=== PATIENT | male | born 1990 | race Caucasian/White ===

== ENCOUNTER 2019-12-12 12:46 | Emergency (ER) | payer SELFPAY ==
[2019-12-12 12:55] VITALS: BP 120/65; PULSE 65; RESP 18; TEMP 36.6; O2SAT 98
[2019-12-12 13:55] VITALS: RESP 18
--- NOTE | 2019-12-12 14:35 | ED.GENADUL_ITS ---
Discharge Plan Disposition Patient Disposition: HOME Condition: Stable Discharge Details Chief Complaint: GenMedical Clinical Impression: Upper respiratory infection Primary Care Provider: Elfego Dee ED Provider: Carmen Lake Home Meds and New Rx's Prescriptions: No Action No Known Home Meds RF: 0 Discharge Instructions Instructions: Upper Respiratory Infection (ED), Acute Cough (ED) Additional Instructions: Please return immediately to the emergency department if you develop any new or worsening symptoms, if your condition does not improve as expected, or if you become otherwise concerned. It is extremely important that you call soon as possible to make an appointment to be seen in follow-up for this visit by your primary care doctor. Stand Alone Forms: Work Release Referrals: Elfego Dee [Primary Care Provider] - Discharge Data Discharge Date/Time-TO BE ENTERED AT DEPARTURE: 12/12/19 14:29 Medical Decision Making Juan Manuel Snell is a 29 y/o man without h/o major medical problems presenting to the emergency department with mild cough, fever, body aches, diarrhea, nasal congestion, sore throat since yesterday. On exam Pt is very well and non-toxic appearing, benign cardiopulmonary exam. Concern for influenza vs other viral illness, other. Exam/hx not c/w sepsis, meningitis, pneumonia, significant metabolic/lyte disturbance, ACS, other acute emergent life threatening process. Plan for flu swab. CXR, labs not indicated at this time. Flu swab negative. Pt requesting d/c to home, states that he feels overall quite well. I had a lengthy discussion with Patient regarding return to emergency department precautions, home care, and importance of outpatient follow-up. Pt verbalizes understanding of the plan and is amenable. Patient discharged to home with clear plan for outpatient follow-up. All questions were answered. Disposition decision was made weighing the risks and benefits of hospitalization versus outpatient treatment, the risk for further decompensation, and the patient's wishes. Medical Records Medical records reviewed: Yes I reviewed the patient's medical records. Lab Data Lab results reviewed: Yes I reviewed the patient's lab results. Labs: 12/12/19 13:50 Nasopharynx Influenza Types A,B Antigen - Final HPI General Mode of arrival: ambulatory . Date/Time Provider Initiated Documentation: 12/12/19 12:59 . Limitations to Documentation: no limitations . Information obtained by: patient, RN notes reviewed and old records reviewed . HPI Narrative: Juan Manuel Snell is a 29 y/o man without reported h/o medical problems presenting to the emergency department with nasal congestion, cough, subjective fever, body aches, sore throat, mild diarrhea beginning yesterday morning. Pt reports significant other with similar symptoms for past 5 day, seen here in the ED previously today diagnosed with viral illness. Pt reports that he was previously well, no other recent illness. States that he has been eating and drinking as usual since onset of symptoms, has been able to go about his usual activities. No recent travel. Pt reports mild sore throat, generalized body aches, no other pain. Denies SOB, vomiting, numbness, weakness, rash. Pt requesting work note. Related Data Home Medications Medication Instructions Recorded Confirmed Unknown [No Known Home Meds] 12/12/19 12/12/19 Allergies Allergy/AdvReac Type Severity Reaction Status Date / Time No Known Allergies Allergy Unverified 12/12/19 12:58 General Stated Complaint: GenMedical MICHELLE: 3 Review of Systems Narrative: Constitutional: reports subjective fever yesterday Eyes: denies eye pain ENT: denies ear pain, dental pain, reports mild sore throat Cardiovascular: denies chest pain Respiratory: denies SOB, reports cough GI: denies abdominal pain, vomiting, reports mild diarrhea : denies flank pain MSK: denies back pain, neck pain, reports generalized arthralgias/myalgias Skin: denies rash Neuro: denies headaches, numbness, weakness PFSH Social History Smoking/Tobacco Use Status: Current every day Tobacco Type: cigarettes Alcohol Intake: never Drug use: Never Substance use type: does not use Do you feel safe at home: Yes Do you feel safe in your relationship?: Yes Exam Narrative Exam Narrative: Constitutional: well and [id number], pleasant, conversing normally HENT: head atraumatic/normocephalic/normal inspection, mucous membranes moist, mild erythema of the posterior pharynx without edema/exudates, uvula midline, no intraoral lesion Eyes: conjunctiva normal, sclera normal, pupils 3mm b/l Neck: no stridor, normal ROM, trachea midline Chest: normal inspection Resp: normal work of breathing, LCTAB Cardio: normal rate, normal rhythm, no murmur appreciated Back: normal inspection, no rash Skin: warm, dry, normal color, no rash Neuro: alert, not altered, grossly non-focal, normal tone Ext: no edema, moving all extremities equally Psych: normal mood, normal affect, normal behavior Course Vital Signs Vital signs: Vital Signs Temperature 36.6 C 12/12/19 12:55 Pulse 65 12/12/19 12:55 Respiratory Rate 18 12/12/19 12:55 Blood Pressure 120/65 12/12/19 12:55 Pulse Oximetry 98 12/12/19 12:55 Temperature 36.6 C 12/12/19 12:55 Temperature Source Temporal Artery Scan 12/12/19 12:55 Pulse 65 12/12/19 12:55 Respiratory Rate 18 12/12/19 13:55 Respiratory Effort Non-Labored 12/12/19 13:55 Respiratory Depth Normal 12/12/19 13:55 Respiratory Pattern Normal 12/12/19 13:55 Blood Pressure 120/65 12/12/19 12:55 Blood Pressure Position Sitting 12/12/19 12:55 Pulse Oximetry 98 12/12/19 12:55 Oxygen Delivery Method Room Air 12/12/19 12:55 Oxygen Flow Rate 0 12/12/19 12:55 Pain Level 0 12/12/19 12:55 Lab/Test Results Lab/Test Results: 12/12/19 13:50 Nasopharynx Influenza Types A,B Antigen - Final
== END 2019-12-12 14:29 | disposition home or self-care (01) ==
PROVIDERS: Emergency Provider Student in an Organized Health Care Education/Training Program; PCP Internal Medicine
DX: J06.9 Acute upper respiratory infection, unspecified (principal); R05 Cough; B34.9 Viral infection, unspecified
CPT/HCPCS: 87449; 99282

== ENCOUNTER 2020-07-16 09:32 | Emergency (ER) | payer MEDICAID, SELFPAY ==
--- NOTE | 2020-07-16 09:30 | DI.US_ITS ---
EXAM: US SCROTUM CLINICAL HISTORY: L testicle pain, high riding TECHNIQUE: Ultrasound performed using standard protocol. COMPARISON: No exams were available for comparison FINDINGS: Scrotal ultrasound was performed according to the usual protocol. Testes are normal in echotexture e xcept for minimal bilateral microlithiasis. Normal Doppler flow noted to both testes. No intratesti cular mass or cyst. The epididymi appear normal bilaterally, normal vascular flow. There is a small left varicocele. No right varicocele identified. IMPRESSION: Negative scrotal ultrasound except for small left varicocele DATA REPOSITORY:
[2020-07-16 09:35] VITALS: BP 122/68; PULSE 71; RESP 16; TEMP 36.2; O2SAT 99
--- NOTE | 2020-07-16 09:46 | ED.GENADUL_ITS ---
Discharge Plan Disposition Patient Disposition: HOME Condition: Stable Discharge Details Clinical Impression: Left varicocele Primary Care Provider: Elfego Dee ED Provider: Duane Lynch Home Meds and New Rx's Prescriptions: No Action No Known Home Meds RF: 0 Discharge Instructions Instructions: Varicocele (ED) Additional Instructions: Please use ibuprofen 600 to 800 mg every 8 hours for discomfort. We will ask our care management team to arrange a follow-up for you in urology clinic. Apply cool compress to reduce discomfort. Return if you develop a fever, bloody urine, or any other acute concerns. Stand Alone Forms: Work Release Medical Decision Making 30-year-old male presents from home with the onset while at rest last night of left testicular pain this been fairly constant but does come in waves. No fever or vomiting. States he had previous right testicular torsion that was repaired at [facility] approximately 5 years ago and for which the patient states he believes the left testicle was tacked down. Reports normal urine and ejaculate. On exam his vitals are unremarkable, he has a high riding and tender left testicle. IV access established, screening blood work and urinalysis obtained, patient referred for ultrasound. The patient has a left varicocele, no evidence of mass or torsion. Discussed that we will refer him to urology for follow-up. Primary management will be with NSAIDs. He is stable and appropriate for discharge to home. HPI General Mode of arrival: ambulatory . Date/Time Provider Initiated Documentation: 07/16/20 09:32 . Limitations to Documentation: no limitations . Information obtained by: patient . History of Present Illness 30 year old M presents to the emergency department with the chief complaint of Left testicle pain and high riding, described as moderate, Quality is described as dull and constant, and is localized to the genitals and left. Patient reports no radiation. Patient started experiencing this hour(s) and it has been constant. No relieving factors improve symptom(s), No exacerbating factors reported . Patient notes denies fever/chills. Patient did receive the following treatments prior to arrival, none Related Data Home Medications Medication Instructions Recorded Confirmed Unknown [No Known Home Meds] 12/12/19 07/16/20 Allergies Allergy/AdvReac Type Severity Reaction Status Date / Time No Known Allergies Allergy Unverified 07/16/20 09:38 General Stated Complaint: Abd Prob MICHELLE: 3 Review of Systems Narrative: No other illness, no abdominal pain, fever or vomiting. 6 systems reviewed and otherwise negative. [facility] Medical History (Updated 07/16/20 @ 11:12 by Duane Lynch MD) Right testicular torsion Social History Smoking/Tobacco Use Status: Current every day Tobacco Type: cigarettes Alcohol Intake: current Alcohol Intake frequency: a few times a month Drug use: Never Substance use type: does not use Do you feel safe at home: Yes Do you feel safe in your relationship?: Yes Exam Narrative Exam Narrative: GEN: awake, alert, oriented 3. Pleasant, well groomed, interactive. HEAD: Normocephalic, atraumatic ENT: Mucous membranes moist, oropharynx unremarkable, External ear exam unremarkable EYES: PERRL, EOMI NECK: Full ROM, no ASHLEY, no menigismus CHEST/RESP: Nontender, clear to auscultation bilateral, no wheeze/rhonchi/rales CARDIOVASCULAR: RRR, no murmur, rub rachele. 2+ Rad pulse bilateral ABDOMEN: Soft, nontender, no mass. +Bowel sounds. Patient has descended testicles bilaterally, the left is high riding and tender with mild swelling. EXT: Full ROM, no edema, no rash Neuro: Grossly normal neurologic exam, conversant, interactive. Psych: Speech fluent, thoughts congruent, affect normal Course Vital Signs Vital signs: Vital Signs Temperature 36.2 C L 07/16/20 09:35 Pulse 71 07/16/20 09:35 Respiratory Rate 16 07/16/20 09:35 Blood Pressure 122/68 07/16/20 09:35 Pulse Oximetry 99 07/16/20 09:35 Temperature 36.2 C L 07/16/20 09:35 Temperature Source Skin 07/16/20 09:35 Pulse 71 07/16/20 09:35 Respiratory Rate 16 07/16/20 09:35 Respiratory Effort Non-Labored 07/16/20 09:35 Blood Pressure 122/68 07/16/20 09:35 Blood Pressure Position Sitting 07/16/20 09:35 Pulse Oximetry 99 07/16/20 09:35 Oxygen Delivery Method Room Air 07/16/20 09:35 Oxygen Flow Rate 0 07/16/20 09:35 Pain Level 6 07/16/20 09:35
[2020-07-16] MEDS: Normal Saline Flush 10 ML SYR IVP (09:50)
[2020-07-16] MEDS: Lactated Ringers 1,000 ML 125 ML IV (09:57)
[2020-07-16 10:09] LABS: Abs Immature Grans 0.02 10^3/uL (0.0-0.06); Absolute Basophil Count 0.04 10^3/uL (0.0-0.2); Absolute Eosinophil Count 0.18 10^3/uL (0.0-0.7); Absolute Lymphocyte Count 2.91 10^3/uL (1.2-3.4); Absolute Monocyte Count 0.79 10^3/uL (0.1-0.8); Absolute Neutrophil Count 3.64 10^3/uL (1.2-6.7); Basophils % 0.5; Eosinophils % 2.4; HCT 49.1 % (40.0-50.0); HGB 17.5 g/dL (13.5-17.5); Immature Grans % 0.3; Lymphocytes % 38.4; MCH 32.1 pg (27.0-33.0); MCHC 35.6 % (32.0-36.0); MCV 90.1 fL (80-95); MPV 11.8 fL (8.0-11.0); Monocytes % 10.4; Nucleated RBC 0 %; Platelet Count 212 10^3/uL (130-400); RBC 5.45 10^6/uL (4.36-5.78); RDW 11.9 % (11.8-14.1); WBC 7.58 10^3/uL (4.4-10.8)
[2020-07-16 10:13] LABS: Bilirubin Negative (Negative); Blood Negative (Negative); Clarity Clear (Clear); Glucose Negative (Negative); Ketones Negative (Negative); Leukocyte Esterase Negative (Negative); Nitrite Negative (Negative); Specific Gravity >= 1.030 (1.005-1.025)
[2020-07-16 10:29] LABS: ALT 26 U/L (16-63); AST 16 U/L (15-37); Albumin 3.9 g/dL (3.4-5.0); Alkaline Phosphatase 64 U/L (46-116); Anion Gap 9.4 mmol/L (3-11); BUN 9 mg/dL (7-18); CO2 24.6 mmol/L (21.0-32.0); Calcium 8.7 mg/dL (8.5-10.1); Chloride 106 mmol/L (98-107); Glucose 107 mg/dL (74-106); Potassium 3.8 mmol/L (3.5-5.1); Sodium 140 mmol/L (136-145); Total Protein 6.9 g/dL (6.4-8.2)
[2020-07-16] MEDS: Ketorolac 15 MG/ML VIAL IVP (11:28)
--- NOTE | 2020-07-16 11:28 | NUR.NOTE ---
Nursing Note: Referral to [facility] Urology faxed for follow up. Alicia Kennedy
[2020-07-16 11:31] VITALS: BP 102/49; PULSE 62; RESP 16; TEMP 37; O2SAT 99
== END 2020-07-16 11:38 | disposition home or self-care (01) ==
LOC: ER 11:25
PROVIDERS: Emergency Provider Emergency Medicine; PCP Internal Medicine
DX: I86.1 Scrotal varices (principal)
CPT/HCPCS: 36415; 80053; 96361; 96372; 99284; 76870; 81003; 85025; J1885

== ENCOUNTER 2020-07-26 12:07 | Emergency (ER) | payer MEDICAID, SELFPAY ==
[2020-07-26 12:12] VITALS: BP 120/72; PULSE 87; RESP 14; TEMP 36.4; O2SAT 98
--- NOTE | 2020-07-26 12:15 | DI.US_ITS ---
EXAM: US SCROTUM CLINICAL HISTORY: Bilateral testicle swelling. TECHNIQUE: Scrotal ultrasound performed using grayscale, color-flow and spectral Doppler analysis. COMPARISON: US US SCROTUM from 07/16/2020 FINDINGS: Right testicle: 4.9 x 2.7 x 3.2 cm Echogenicity: Normal. Contour: Smooth. Mass: None seen. Microlithiasis: None. Hydrocele: None. Variocele: None. Hernia: No peristalsing bowel loop identified. Epididymis: Small spermatoceles. The largest measures 6 mm. Left testicle: 4.7 x 2.4 x 3.0 cm Echogenicity: Normal. Contour: Smooth. Mass: None seen. Microlithiasis: None. Hydrocele: None. Variocele: Left varicocele up to 3 mm with Valsalva. Hernia: No peristalsing bowel loop identified. Epididymis: Small spermatoceles. DOPPLER: Color: Symmetric and uniform, no hyperemia. Duplex: Bilateral testicular arterial waveforms visualized. IMPRESSION: No acute abnormality. No evidence of torsion or mass. Small left varicocele. Findings were discussed with the emergency department on the date of the examination. DATA REPOSITORY:
--- NOTE | 2020-07-26 12:19 | ED.GENADUL_ITS ---
Discharge Plan Disposition Patient Disposition: HOME Condition: Stable Discharge Details Clinical Impression: Left varicocele, Spermatocele Primary Care Provider: Elfego Dee ED Provider: Portia Jolley Home Meds and New Rx's Prescriptions: No Action No Known Home Meds RF: 0 Discharge Instructions Instructions: Varicocele (ED), Spermatocele (ED) Stand Alone Forms: Work Release Referrals: Paco Brody MD [ [facility] STAFF PHYSICIAN] - Elfego Dee [Primary Care Provider] - Discharge Data Discharge Date/Time-TO BE ENTERED AT DEPARTURE: 07/26/20 13:18 Medical Decision Making 30-year-old male presents to the ER with bilateral testicle tenderness and swelling. He was seen approximately 10 days ago similar complaint and was diagnosed with a left varicella. He has not followed up with urology as suggested he states that no one is contacted him for an appointment. He does report dysuria at this time and worsening symptoms. Repeat scrotum ultrasound ordered and urinalysis including gonorrhea and chlamydia which is pending at this time. Urinalysis is largely within normal limits no leukocytes no nitrites no blood. EXAM: US SCROTUM CLINICAL HISTORY: Bilateral testicle swelling. TECHNIQUE: Scrotal ultrasound performed using grayscale, color-flow and spectral Doppler analysis. COMPARISON: US US SCROTUM from 07/16/2020 FINDINGS: Right testicle: 4.9 x 2.7 x 3.2 cm Echogenicity: Normal. Contour: Smooth. Mass: None seen. Microlithiasis: None. Hydrocele: None. Variocele: None. Hernia: No peristalsing bowel loop identified. Epididymis: Small spermatoceles. The largest measures 6 mm. Left testicle: 4.7 x 2.4 x 3.0 cm Echogenicity: Normal. Contour: Smooth. Mass: None seen. Microlithiasis: None. Hydrocele: None. Variocele: Left varicocele up to 3 mm with Valsalva. Hernia: No peristalsing bowel loop identified. Epididymis: Small spermatoceles. DOPPLER: Color: Symmetric and uniform, no hyperemia. Duplex: Bilateral testicular arterial waveforms visualized. IMPRESSION: No acute abnormality. No evidence of torsion or mass. Small left varicocele. Findings were discussed with the emergency department on the date of the examination. Ultrasound findings are noted above. Discussed these with patient who verbalizes understanding. Patient was given phone number for urologist and instructed once again to follow-up with urology. Patient verbalizes understanding. Patient remained hemodynamically stable throughout stay. This text was generated using [employer] dictation system, please disregard any oddities of phrase or misspellings. HPI General Mode of arrival: ambulatory . Date/Time Provider Initiated Documentation: 07/26/20 12:15 . Limitations to Documentation: no limitations . Information obtained by: patient . HPI Narrative: 30-year-old male who was seen here approximately 10 days ago with left testicular swelling. He since then states that swelling has extended to left and right testicles and is associated with dysuria. Does have a past surgical history of testicular torsion on the right side which occurred approximately 5 years ago. He has noted a bit of erythema to the bilateral testicles. He also endorses emesis which occurred approximately 4 days ago. He has not seen urology since his visit here. Pain is worse with movement. Related Data Home Medications Medication Instructions Recorded Confirmed Unknown [No Known Home Meds] 12/12/19 07/26/20 Allergies Allergy/AdvReac Type Severity Reaction Status Date / Time No Known Allergies Allergy Unverified 07/26/20 12:14 General Stated Complaint: Vascular MICHELLE: 3 Review of Systems Narrative: Constitutional: Negative for weight loss, alert and oriented, well groomed, normal body habitus, appears comfortable. HEENT: Denies trauma, headaches, blurry vision, nasal discharge, sore throat, trouble swallowing. Chest: Denies chest pain, palpitations, irregular rhythm, hypertension. Respiratory: Denies Shortness of breath, cough, hemoptysis. GI: Denies abdominal pain, nausea, vomiting, diarrhea, constipation. : Denies dysuria, hematuria, flank pain, rectal bleeding. Neuro: Denies dizziness, blurry vision, weakness, syncope, headache or facial numbness. Hematologic: Denies easy bruising, intolerance to heat or cold, hair loss. [facility] Medical History Right testicular torsion Social History Smoking/Tobacco Use Status: Current every day Tobacco Type: cigarettes Alcohol Intake: current Alcohol Intake frequency: a few times a month Drug use: Never Substance use type: does not use Do you feel safe at home: Yes Do you feel safe in your relationship?: Yes Exam Narrative Exam Narrative: Constitutional: Alert and oriented x3. Appears stated age. Normal body habitus. Head: Normocephalic, no trauma. Eyes: Pupils PERRLA, Red reflex noted, EOM's intact. Eyelids symmetrical without lesions, discharge, or swelling. ENT: Bilateral TM's WNL, External ear normal to inspection, no mastoid TTP, swelling, or erythema, Nasal turbinates WNL, no nasal discharge. Normal dentition, Posterior pharynx WNL, no exudate. Chest: RRR, Normal S1, S2, distal pulses intact. Resp: Lungs clear to auscultation bilaterally, no wheezes, rales, or rhonchi. GI: Abdomen is soft nontender nondistended with palpation. :Crematic reflex present on the right. Bilateral testicles are tender with palpation, erythema noted to the scrotal sac, no penile lesions or discharge noted. Musculoskeletal: Normal gait, 5/5 strength to all four extremities. Skin: No suspicious rashes or lesions. Capillary refill less than 2 sec. Neurologic: Cranial nerves II-XII intact. Alert and oriented x 3. DTR's intact. Hematologic/Lymphatic: No ecchymosis, no lymphadenopathy. Course Vital Signs Vital signs: Vital Signs Temperature 36.4 C L 07/26/20 12:12 Pulse 87 07/26/20 12:12 Respiratory Rate 14 07/26/20 12:12 Blood Pressure 120/72 07/26/20 12:12 Pulse Oximetry 98 07/26/20 12:12 Temperature 36.4 C L 07/26/20 12:12 Temperature Source Temporal Artery Scan 07/26/20 12:12 Pulse 87 07/26/20 12:12 Respiratory Rate 14 07/26/20 12:12 Respiratory Effort Non-Labored 07/26/20 12:14 Blood Pressure 120/72 07/26/20 12:12 Blood Pressure Position Sitting 07/26/20 12:12 Pulse Oximetry 98 07/26/20 12:12 Oxygen Delivery Method Room Air 07/26/20 12:12 Oxygen Flow Rate 0 07/26/20 12:12 Pain Level 10 07/26/20 12:12
[2020-07-26 12:44] LABS: Bilirubin Negative (Negative); Blood Negative (Negative); Clarity Clear (Clear); Glucose Negative (Negative); Ketones Negative (Negative); Leukocyte Esterase Negative (Negative); Nitrite Negative (Negative); Specific Gravity >= 1.030 (1.005-1.025); Urobilinogen 0.2 EU/dL (Up TO 0.2); pH 5.5 (5-8)
[2020-07-26] MEDS: traMADol 50 MG TAB PO (13:10)
--- NOTE | 2020-07-26 13:15 | NUR.NOTE ---
Nursing Note: Referral to [facility] Urology for follow up faxed to [facility]. Alicia Kennedy
--- NOTE | 2020-07-26 13:38 | NUR.NOTE ---
Nursing Note: Patient being seen for bilateral testicle pain & swelling. Began as left sided pain. Provider examined per patient request.
[2020-07-27 13:52] LABS: Chlamydia Result Negative (Negative); GC Result Negative (Negative)
== END 2020-07-26 13:18 | disposition home or self-care (01) ==
PROVIDERS: Emergency Provider Registered Nurse Emergency; PCP Internal Medicine
DX: I86.1 Scrotal varices (principal); N43.40 Spermatocele of epididymis, unspecified; R30.0 Dysuria
CPT/HCPCS: 87491; 87591; 99284; 76870; 81003

== ENCOUNTER 2020-12-04 21:18 | Emergency (ER) | payer MEDICAID, SELFPAY ==
[2020-12-04 21:25] VITALS: BP 129/75; PULSE 71; RESP 16; TEMP 36.4; O2SAT 100
--- NOTE | 2020-12-04 21:30 | ED.GENADUL_ITS ---
Discharge Plan Disposition Patient Disposition: HOME Condition: Good Discharge Details Clinical Impression: Rash, Cellulitis, Impetigo Primary Care Provider: Elfego Dee ED Provider: Sathya Baca Home Meds and New Rx's Prescriptions: New cephalexin [Keflex] 500 mg capsule 500 mg PO QID 7 Days Qty: 28 RF: 0 mupirocin 2 % ointment 1 applic topical BID Qty: 15 RF: 0 Discharge Instructions Instructions: Cephalexin (By mouth), Impetigo (ED), Cellulitis (ED) Additional Instructions: At this time clinically your symptoms appear indicative of a mild bacterial infection that has occurred on your rash. This rash may have started from dry skin during the current weather that we are having. Please apply a small amount of the mupirocin ointment to the rash areas. Please take the Keflex as directed. If you notice spreading of the redness, fever or chills, please return immediately for reassessment. If you notice any worsening of your symptoms, or any new symptoms such as vomiting, diarrhea, fever, chills, shortness of breath, chest pain, numbness, weakness, or fainting , please return immediately to the emergency department for reevaluation. Please follow up with your primary care provider as soon as possible for reassessment and reevaluation. As always, it was a pleasure participating in your medical care today. Additionally as we discussed, we will help you establish a new family doctor in this area as you have now moved down here. Referrals: Elfego Dee [Primary Care Provider] - Medical Decision Making 30-year-old male presents today for rash. Patient states that over the last 24 to 48 hours he has developed a mild rash on his left forearm and his right flank. He describes the rash as notably itchy on the left forearm and burning on the right flank. He has never had a rash before, no new medications, no localized exposure to heat or cold. No new detergents, no family members with similar symptoms, no new pets. He does have a dog but the dog has not been licking these areas. No history of autoimmune conditions, or eczema. No other complaints at this time. He denies any oral lesions. Physical exam demonstrates 2 separate and visually distinct lesions, the lesion on the left forearm appears more dry, crusty, with slight tint of yellow crusting, concerning for impetigo with minimal cellulitis. There is also a small satellite lesion to this. No other lesions over the extensor or flexor surfaces otherwise. Lesion on the right flank is also small but demonstrates more clear evidence of localized cellulitis. No induration or firmness though. Symptoms at this time appear consistent with both mild cellulitis and mild impetigo. Uncertain as to what the exact initial inciting etiology was. No current clinical evidence of staph scalded skin syndrome, erythema multiforme, erythema migrans, toxic epidermal necrolysis, Grace-Clarence syndrome, Kawasaki-like rash, meningococcemia, pemphigus vulgaris, or necrotizing fasciitis. At this time we will give Keflex and topical mupirocin. We outlined both the rash areas, discussed red flags which to return. I have extensively reviewed the treatment plan and discharge instructions with the patient. I have addressed all patient concerns at this time. The patient was made aware of what symptoms to monitor for that would warrant a return to the emergency department. Discussed the plan with the patient, they demonstrate verbal understanding and agreement with our assessment and plan at this time. The documentation in this chart was dictated using [employer] dictation software. Please excuse any dictation errors. Additionally the patient has recently moved down to [facility], he has asked that we help establish PCP care down here. Will help facilitate this with care management referral. HPI General Date/Time Provider Initiated Documentation: 12/04/20 21:20 . HPI Narrative: 30-year-old male presents today for rash. Patient states that over the last 24 to 48 hours he has developed a mild rash on his left forearm and his right flank. He describes the rash as notably itchy on the left forearm and burning on the right flank. He has never had a rash before, no new medications, no localized exposure to heat or cold. No new detergents, no family members with similar symptoms, no new pets. He does have a dog but the dog has not been licking these areas. No history of autoimmune conditions, or eczema. No other complaints at this time. He denies any oral lesions. Related Data Home Medications Medication Instructions Recorded Confirmed cephalexin [Keflex] 500 mg PO QID 7 Days #28 cap 12/04/20 mupirocin 1 applic TOPICAL BID #15 g 12/04/20 Previous Rx's Medication Instructions Recorded cephalexin [Keflex] 500 mg PO QID 7 Days #28 cap 12/04/20 mupirocin 1 applic TOPICAL BID #15 g 12/04/20 Allergies Allergy/AdvReac Type Severity Reaction Status Date / Time No Known Allergies Allergy Unverified 07/26/20 12:14 General Stated Complaint: RashLesion MICHELLE: 5 Review of Systems All systems reviewed & are unremarkable except as noted in HPI and below PFSH Social History Smoking/Tobacco Use Status: Current every day Tobacco Type: cigarettes Smoking risk assessment performed?: Yes Alcohol Intake: current Alcohol Intake frequency: a few times a month Drug use: Never Substance use type: does not use Current gender identity: male Do you feel safe at home: Yes Do you feel safe in your relationship?: Yes Exam Narrative Exam Narrative: 1.Const: Well-nourished, Well-developed, appearing stated age 2.Eyes: PERRL, no conjunctival injection, and symmetrical lids. 3.ENT: Atraumatic external nose and ears. Moist MM. Neck: Symmetric, trachea midline, No thyromegaly. 4.CVS: +S1/S2, No murmurs or gallops. Peripheral pulses 2+ and equal in all extremities. Brisk capillary refill in all extremities. 5.RESP: Unlabored respiratory effort. Clear to auscultation bilaterally. No wheezes rales or rhonchi 6.GI: Soft, Nontender/Nondistended, No hepatosplenomegaly. No guarding or rebound. 7.MSK: Normocephalic/Atraumatic, Extremities w/o deformity or ttp No cyanosis or clubbing, Normal movement of all extremities 8.Skin: Warm, Dry. Patient's left forearm demonstrate a longitudinal rash going proximal to distal being about 10 cm long and 1-1/2 to 2 cm wide. The skin appears slightly dry, minimally erythematous, and notably crusty, but the patient denies having itch this area. Slight/questionable yellow crusting. The patient's right flank demonstrates an area of focal skin irritation with a circular shape, diameter of roughly 2-1/2 to 3 cm, with mild circumferential erythema extending an additional 2-1/2 to 3 cm of the radius, around that region. Both of these areas there is no evidence of fluctuance, negative Nikolsky sign. No large vesicles or bulla. No palpable purpura. No oral lesions. No mucosal lesions. No evidence of severe cellulitis. No evidence of vaccine preventable rash. 9.Neuro: supervisory lifeguard II-XII grossly intact. Sensation grossly intact, no focal neurologic deficits. 10.Psych: (AAO) x3. Appropriate mood and affect Course Vital Signs Vital signs: Vital Signs Temperature 36.4 C L 12/04/20 21:25 Pulse 71 12/04/20 21:25 Respiratory Rate 16 12/04/20 21:25 Blood Pressure 129/75 12/04/20 21:25 Pulse Oximetry 100 12/04/20 21:25 Temperature 36.4 C L 12/04/20 21:25 Temperature Source Skin 12/04/20 21:25 Pulse 71 12/04/20 21:25 Respiratory Rate 16 12/04/20 21:25 Blood Pressure 129/75 12/04/20 21:25 Blood Pressure Position Sitting 12/04/20 21:25 Pulse Oximetry 100 12/04/20 21:25 Oxygen Delivery Method Room Air 12/04/20 21:25 Oxygen Flow Rate 0 12/04/20 21:25 Pain Level 7 12/04/20 21:25
[2020-12-04] MEDS: Cephalexin 500 MG CAP, 4 CAPS/BTL PO (21:36)
--- NOTE | 2020-12-04 21:40 | NUR.NOTE ---
sent referral to CM for establishment of new local pcp Rj Bae Note:
--- NOTE | 2020-12-12 16:25 | PDOC.ERCMPRO ---
- If Service Date Differs Date of service: 12/12/20 Time of Service: 16:25 Care Management Progress Note Juan Manuel is seen in the ED on 12/04/2020 for a rash/cellulitis. At the request of ED provider, MENDOZA coordinates a referral to Sarah Gramajo of [facility], on-call provider, to assist Juan Manuel in obtaining a follow up appointment and in establishing care with a local PCP. Juan Manuel has [place] Medicaid for insurance.
== END 2020-12-04 21:40 | disposition home or self-care (01) ==
PROVIDERS: Emergency Provider Student in an Organized Health Care Education/Training Program; PCP Internal Medicine
DX: L03.114 Cellulitis of left upper limb (principal); L03.312 Cellulitis of back [any part except buttock and flank]; L01.00 Impetigo, unspecified
CPT/HCPCS: 99283

== ENCOUNTER 2021-04-15 07:33 | Emergency (ER) | payer OTHER, SELFPAY ==
[2021-04-15 07:37] VITALS: BP 134/73; PULSE 79; RESP 18; TEMP 36; O2SAT 95
--- NOTE | 2021-04-15 08:00 | DI.RAD_ITS ---
Exam(s) XR HAND LT COMPLETE EXAM: XR HAND LT COMPLETE CLINICAL HISTORY: left laceration from trauma,mid 5th metacarpal. TECHNIQUE: 2D digital imaging was performed. COMPARISON: No exams were available for comparison FINDINGS: There is soft tissue avulsion off the medial aspect of the hand. There is a laceration which extends deep towards the bone. There is no evidence of fracture of the subjacent 5th metacarpal nor elsewhe re in the hand.. On the lateral view are densities dorsal to the distal wrist which may represent fo reign bodies. This is slightly proximal to the wound site. IMPRESSION: Deep soft tissue laceration on the medial aspect of the hand. No subjacent fracture but possible for eign body as described above, best seen on the lateral view. DATA REPOSITORY: RADIATION DOSE DELIVERED:
--- NOTE | 2021-04-15 09:09 | ED.GENADUL_ITS ---
Discharge Plan Disposition Patient Disposition: HOME Condition: Good Discharge Details Clinical Impression: Complicated laceration of hand Primary Care Provider: Elfego Dee ED Provider: Millie Davis Home Meds and New Rx's Prescriptions: New hydrocodone-acetaminophen 5-325 mg tablet 1 tab PO Q8H PRNQty: 3 RF: 0 cephalexin 500 mg tablet 500 mg PO Q6H Qty: 28 RF: 0 Discharge Instructions Instructions: Laceration (ED) Additional Instructions: Change dressings every 2 days If you do not receive a phone call from orthopedics office, please give them a call to schedule appointment tomorrow You do not need to be evaluated tomorrow but I would call to set up an appointment Take ibuprofen and Tylenol for pain, if your pain is not controlled with these [id number] medications, you may take a tablet of hydrocodone as needed, this medication is addictive and can make you constipated You should also not drive for 8 hours after taking this medication, do not take more than 1 g of Tylenol every 6 hours Please return with spreading redness, fever, worsening pain Take antibiotic as prescribed Stand Alone Forms: Work Release Discharge Data Discharge Date/Time-TO BE ENTERED AT DEPARTURE: 04/15/21 10:05 Medical Decision Making Foreign bodies noted, I did attempt to locate evidence of foreign body, I irrigated copiously but did not see obvious foreign body noted There is a deeper puncture wound but I do not see obvious tendon, there is obv ious muscle injury through the fascia, do not visualize the bone, placed on Keflex Discussed with Dr. Small, orthopedics who will see patient in follow-up, large bulky dressing applied Patient aware that he will need orthopedic follow-up this week Low threshold to return with new or worsening complaints Tolerated suture placement without incident No fracture noted on x-ray imaging per radiologist interpretation of my review Tetanus up-to-date Differential Diagnosis Differential Diagnosis: Laceration, abrasion, contusion, fracture Medical Records Medical records reviewed: Yes I reviewed the patient's medical records. HPI General Date/Time Provider Initiated Documentation: 04/15/21 08:00 . Limitations to Documentation: no limitations . Information obtained by: patient . HPI Narrative: This is a 30-year-old male presents with laceration to left hand. He reportedly had a piece of wood kicked back when he was cutting it with a saw. He denies any additional injuries. He states that his tetanus is up-to-date. He is having difficulty abducting his left chest digit reportedly on the pain. He denies any sensation change. He does report he is able to flex and extend his affected finger. He has not anticoagulated reportedly. Related Data Home Medications Medication Instructions Recorded Confirmed cephalexin 500 mg PO Q6H #28 tab 04/15/21 hydrocodone-acetaminophen 1 tab PO Q8H PRN #3 tab 04/15/21 Previous Rx's Medication Instructions Recorded cephalexin 500 mg PO Q6H #28 tab 04/15/21 hydrocodone-acetaminophen 1 tab PO Q8H PRN #3 tab 04/15/21 Allergies Allergy/AdvReac Type Severity Reaction Status Date / Time No Known Allergies Allergy Unverified 04/15/21 07:40 General Stated Complaint: Laceration MICHELLE: 4 Review of Systems Narrative: Review of systems negative x3 aside from where indicated in HPI PFSH Social History Smoking/Tobacco Use Status: Current every day Tobacco Type: cigarettes Smoking risk assessment performed?: Yes Alcohol Intake: current Alcohol Intake frequency: holidays/special occasions only Drug use: Never Substance use type: does not use Current gender identity: male Do you feel safe at home: Yes Do you feel safe in your relationship?: Yes Exam Extrem Hand/finger images: 1. 2. Laceration noted, limited abduction, flexion extension intact, brisk capillary refill, now obvious tendon injury, muscle injury noted Sensation intact distally Course Vital Signs Vital signs: Vital Signs Temperature 36 C L 04/15/21 07:37 Pulse 79 04/15/21 07:37 Respiratory Rate 18 04/15/21 07:37 Blood Pressure 134/73 04/15/21 07:37 Pulse Oximetry 95 04/15/21 07:37 Temperature 36 C L 04/15/21 07:37 Temperature Source Temporal Artery Scan 04/15/21 07:37 Pulse 79 04/15/21 07:37 Respiratory Rate 18 04/15/21 07:37 Respiratory Effort Non-Labored 04/15/21 07:41 Blood Pressure 134/73 04/15/21 07:37 Blood Pressure Position Sitting 04/15/21 07:37 Pulse Oximetry 95 04/15/21 07:37 Oxygen Delivery Method Room Air 04/15/21 07:37 Oxygen Flow Rate 0 04/15/21 07:37 Pain Level 7 04/15/21 07:41 Procedures Laceration Laceration 1: Site: hand Side (If applicable): left Size (cm): 3 Description: irregular Depth: involves muscle layer and involves tendon Local Anesthetic: Lidocaine 1% Pre-repair: wound explored, irrigated extensively and wound margins revised Skin layer closed with: nylon Size (cm): 4-0 Number of sutures: 5 Technique: simple, interrupted and other
== END 2021-04-15 10:05 | disposition home or self-care (01) ==
PROVIDERS: Emergency Provider Physician Assistant; PCP Internal Medicine
DX: S61.422A Laceration with foreign body of left hand, initial encounter (principal); S66.822A Laceration of other specified muscles, fascia and tendons at wrist and hand level, left hand, initial encounter; W31.2XXA Contact with powered woodworking and forming machines, initial encounter
CPT/HCPCS: 12002; 99282; 73130; 99281

== ENCOUNTER 2021-11-18 22:19 | Emergency (ER) | payer MEDICAID, SELFPAY ==
[2021-11-18] VITALS (16 sets, daily range): BP systolic 59–152; BP diastolic 33–71; PULSE 88–152; RESP 18; TEMP 38.1; O2SAT 96–99
--- NOTE | 2021-11-18 22:50 | ED.GENADUL_ITS ---
Discharge Plan Disposition Patient Disposition: HOME Condition: Stable Discharge Details Clinical Impression: COVID Primary Care Provider: Unknown,Unknown ED Provider: Justin Butterfield Home Meds and New Rx's Prescriptions: Discontinued cephalexin 500 mg tablet 500 mg PO Q6H Qty: 28 RF: 0 Discharge Instructions Additional Instructions: If you feel significantly more short of breath or more ill return to the emergency department for evaluation Stand Alone Forms: COVID-19 Antibody Therapy, POSITIVE COVID-19/TO BE TESTED Medical Decision Making <DARIN Adams - Last Filed: 11/19/21 01:10> Patient is a pleasant 31-year-old gentleman presents today with chief complaint fever, headache, general malaise, body aches. He states that symptoms began this morning. He reports a T-max of 105 ?F at home today. States that he used ibuprofen approximately 2 hours prior to arrival. States that he had a slow progressive onset of headache. Reports that he has had a headache directly but this does seem to be slightly increased from his baseline. He denies any rash. No visual changes. He does state that he has been feeling slightly lightheaded. No focal deficits. 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 He denies any shortness of breath, chest pain, cough, rhinorrhea or throat. He has not had any GI upset including nausea, vomiting, diarrhea. No change in his appetite today. Zeya denies any dysuria, increased frequency or urgency. On exam, patient appears nontoxic. Slightly tachycardic with heart rate of 106. Febrile at time of 38 1. We will augment his ibuprofen with oral acetaminophen. He has a normal neurological exam. He does have some discomfort over his bilateral temples. He denies any claudication symptoms given his age and that he has no associated claudication, I do not see evidence suggest temporal arteritis. He has no meningismus. No rash. Lungs are clear, normal cardiac exam. Abdomen is benign. He does seem generally uncomfortable with palpation consistent with his complaint of body aches. Patient did not vaccine against COVID-19. He has not received his flu vaccine. Patient is an active smoker and reports smoking 1 pack/day. He denies any known respiratory issues. Unclear exactly what is causing his symptoms. Primarily concern for COVID or flu at this time given the onset of the symptoms the patient is not vaccinated. He does state that his son was exposed to COVID at daycare but they had test that were negative on Thursday. His exam is not consistent with meningitis, patient does not appear acutely ill. He is not endorsing any respiratory complaints this time his oxygen saturation is good. However, with his heavy smoking history, I am concerned that if it is fluid COVID he is at higher risk for complications. We will obtain fluvid testing, CBC, CMP, lactate, UA as I am unclear as to where the source of his fever and malaise is coming from. Contacted by labs, patient has a lactate 2.3. No leukocytosis. Stable H&H. Patient is lymphopenic, further heightening concern for COVID. AT the end of my shift, care transitioned to Dr. Butterfield with Fluvid pending. <Justin Butterfield MD - Last Filed: 11/19/21 00:37> patient feeling better, is positive for covid, no hypoxia, head pain gone and no meningismus so do not feel LP indicated. Discussed monoclonal antibodies and he consents to having this done, if no reactions during infusion will likely d/c and return precautions discussed HPI <DARIN Adams - Last Filed: 11/19/21 01:10> General Mode of arrival: ambulatory . Date/Time Provider Initiated Documentation: 11/18/21 22:23 . Limitations to Documentation: no limitations . Information obtained by: patient and RN notes reviewed . History of Present Illness 31 year old M presents to the emergency department with the chief complaint of fever, headache, body aches, fatigue, malaise, described as severe, with intensity rated at 10. Quality is described as aching, and is localized to the head. Patient reports no radiation. Patient started experiencing this hour(s) (began this AM) and it has been constant. No relieving factors improve symptom(s), No exacerbating factors reported . Patient notes fever/chills; denies chest pain, cough, diaphoresis, loss of appetite, nausea/vomiting, rash and shortness of breath. Patient did receive the following treatments prior to arrival, other (APAP) Related Data Allergies Allergy/AdvReac Type Severity Reaction Status Date / Time No Known Allergies Allergy Unverified 04/15/21 07:40 General Stated Complaint: Fever MICHELLE: 3 Review of Systems <DARIN Adams - Last Filed: 11/19/21 01:10> Constitutional Constitutional: Reports as per HPI, Denies chills, Reports fatigue, Reports fever(s), Reports headache(s), Reports lethargy and Denies poor appetite Eyes Eyes: Reports as per HPI, Denies blurry vision, Denies change in vision and Reports photophobia ENT Ears, Nose, Mouth, and Throat: Denies vertigo, Reports dizziness (has intermittently felt lightheaded), Reports headache(s) and Denies neck pain Cardiovascular Cardiovascular: Reports as per HPI, Denies chest pain, Reports lightheadedness, Denies dyspnea and Denies dyspnea on exertion Respiratory Respiratory: Reports as per HPI, Denies chest congestion, Denies cough, Denies dyspnea, Denies dyspnea on exertion, Denies stridor and Denies wheezing Gastrointestinal Gastrointestinal: Reports as per HPI, Denies abdominal pain, Denies change in bowel habits, Denies nausea and Denies vomiting Genitourinary Genitourinary: Reports system reviewed and no additional complaints, except as documented (denies change in urinary habits) Musculoskeletal Musculoskeletal: Reports as per HPI, Reports back pain, Reports myalgias, Denies neck pain and Denies numbness Integumentary/Breasts Skin/Breast: Reports as per HPI and Denies rash Neurologic Neurologic: Reports as per HPI, Denies abnormal movements, Denies abnormal speech, Denies behavioral changes, Denies confusion, Denies vertigo, Reports dizziness (has intermittently felt lightheaded), Reports headache(s), Denies localized weakness, Denies numbness and Denies sensory deficit Psychiatric Psychiatric: Denies behavioral changes and Denies confusion Endocrine Endocrine: Reports fatigue Allergic/Immunologic Allergic/Immunologic: Denies wheezing PFSH <DARIN Adams - Last Filed: 11/19/21 01:10> All Active Problems (Updated 11/19/21 @ 00:36 by Justin Butterfield MD) COVID (Acute) Complicated laceration of hand (Acute 04/15/21) LEFT Upper respiratory infection (Acute) Social History Smoking/Tobacco Use Status: Current every day Tobacco Type: cigarettes Smoking risk assessment performed?: Yes Alcohol Intake: current Alcohol Intake frequency: holidays/special occasions only Drug use: Never Substance use type: does not use Current gender identity: male Do you feel safe at home: Yes Do you feel safe in your relationship?: Yes Exam <DARIN Adams - Last Filed: 11/19/21 01:10> Const General: cooperative, healthy appearing, uncomfortable, no acute distress, well developed and well groomed Nutritional Appearance: average body habitus and well nourished Orientation: alert, awake and oriented x3 HENMT Head: normal to inspection, no palpable skull fracture, normocephalic and atraumatic Ears: hearing grossly normal bilaterally, external ears normal and TM's normal bilaterally General nose exam: external nose normal Face and sinus: normal facial exam and face symmetric Mouth: oral mucosae normal and moist mucous membranes Teeth and gingiva: dentition normal Throat: posterior oropharynx normal, tonsils normal and uvula midline Eyes General: appearance normal, both eyes and all related structures Alignment and Position: alignment normal Periorbital: periorbital findings normal Eyelids: eyelids normal Sclera: sclerae normal Cornea: corneas normal Pupils: PERRL EOM: EOM intact bilaterally Neck Neck: normal visual inspection, full ROM, no lymphadenopathy and no meningeal signs Resp Effort & Inspection: normal respiratory effort, able to speak in complete sentences and no respiratory distress Auscultation: clear to auscultation bilaterally, no rales, no rhonchi and no wheezes Cardio Rate: regular rate Rhythm: regular rhythm Heart Sounds: S1 normal and S2 normal GI Inspection: normal to inspection and non-distended Palpation: soft, no hepatosplenomegaly, not firm, no guarding, not rigid and nontender Percussion: normal to percussion Auscultation: normal bowel sounds Back/Spine/Pelvis Cervical Spine: normal cervical lordosis and cervical ROM normal Skin General skin exam: no rashes or lesions noted Neuro General: patient alert, patient awake and patient oriented x3 Cranial Nerves: CN's II-XI intact bilaterally Cognition: normal cognition Speech: speech normal Gait: normal gait Motor: muscle tone normal throughout, strength 5/5 throughout, no pronator drift, no movement abnormalities noted and no fasciculations Sensory Exam: no sensory deficits noted Psych Appearance: grossly normal and well kempt Mental Status: mental status grossly normal Speech and Movement: speech and movement normal Course <DARIN Adams - Last Filed: 11/19/21 01:10> Vital Signs Vital signs: Vital Signs Temperature 38.1 C H 11/18/21 22:26 Pulse 106 H 11/18/21 22:26 Respiratory Rate 18 11/18/21 22:26 Blood Pressure 151/71 H 11/18/21 22:26 Pulse Oximetry 97 11/18/21 22:26 Temperature 38.1 C H 11/18/21 22:26 Temperature Source Oral 11/18/21 22:26 Pulse 106 H 11/18/21 22:26 Respiratory Rate 18 11/18/21 22:26 Respiratory Effort 11/18/21 22:29 Blood Pressure 151/71 H 11/18/21 22:26 Blood Pressure Position Supine 11/18/21 22:26 Pulse Oximetry 97 11/18/21 22:26 Oxygen Delivery Method Room Air 11/18/21 22:26 Oxygen Flow Rate 0 11/18/21 22:26 Pain Level 10 11/18/21 22:26 Sign Out <DARIN Adams - Last Filed: 11/19/21 01:10> Sign Out Data: Sign Out Comment: Care transitioned to Dr. Butterfield. Patient febrile. Complaining of general malaise, fatigue, body aches, CERDA. Received APAP here. NSAID prior to arrival. COVID pending, concernd this will be positive. Smoker, if positive he will qualify for monoclonal antibody. Last updated by Candida Fuentes PA at 11/18/21 23:54
[2021-11-18 22:54] LABS: Source Nasal/Nares
[2021-11-18] MEDS: Normal Saline 1,000 ML 1000 ML IV (22:55)
[2021-11-18 22:58] LABS: Abs Immature Grans 0.01 10^3/uL (0.0-0.06); Absolute Basophil Count 0.04 10^3/uL (0.0-0.2); Absolute Eosinophil Count 0.09 10^3/uL (0.0-0.7); Absolute Lymphocyte Count 0.94 10^3/uL (1.2-3.4); Absolute Neutrophil Count 3.21 10^3/uL (1.2-6.7); Basophils % 0.7; Eosinophils % 1.6; HCT 46.1 % (40.0-50.0); HGB 15.9 g/dL (13.5-17.5); Immature Grans % 0.2; Lymphocytes % 16.5; MCH 31.1 pg (27.0-33.0); MCHC 34.5 % (32.0-36.0); MPV 12.3 fL (8.0-11.0); Monocytes % 24.6; Neutrophils % 56.4; Nucleated RBC 0 %; Platelet Count 197 10^3/uL (130-400); RBC 5.12 10^6/uL (4.36-5.78); RDW 11.8 % (11.8-14.1); RDW-SD 39.1 fL; WBC 5.69 10^3/uL (4.4-10.8)
[2021-11-18 22:59] LABS: Lactate 2.3 mmol/L (0.6-1.4)
[2021-11-18 23:11] LABS: ALT 35 U/L (16-63); AST 17 U/L (15-37); Alkaline Phosphatase 85 U/L (46-116); Anion Gap 10.2 mmol/L (3-11); BUN 11 mg/dL (7-18); Bilirubin, Total 1.1 mg/dL (0.2-1.0); CO2 25.8 mmol/L (21.0-32.0); CREATININE 1.1 mg/dL (0.70-1.30); Calcium 8.7 mg/dL (8.5-10.1); Chloride 101 mmol/L (98-107); Glucose 129 mg/dL (74-106); Magnesium 1.7 mg/dL (1.8-2.4); Potassium 3.4 mmol/L (3.5-5.1); Sodium 137 mmol/L (136-145); Total Protein 7.2 g/dL (6.4-8.2)
[2021-11-18 23:11] LABS: Bilirubin Negative (Negative); Blood Negative (Negative); Clarity Clear (Clear); Glucose Negative (Negative); Ketones Negative (Negative); Leukocyte Esterase Negative (Negative); Nitrite Negative (Negative); Specific Gravity 1.025 (1.005-1.025)
[2021-11-18 23:46] LABS: Influenza A PCR Negative (Negative); Influenza B PCR Negative (Negative); RSV PCR Negative (Negative)
[2021-11-19] VITALS (19 sets, daily range): BP systolic 129–136; BP diastolic 51–105; PULSE 77–91; TEMP 36.8; O2SAT 96–99
[2021-11-19 00:09] LABS: COVID-19 PCR POSITIVE (Negative)
--- NOTE | 2021-11-19 01:25 | SUR.PHASEI ---
pt monoclonial antibodies transfusion completed without difficulty
== END 2021-11-19 02:18 | disposition home or self-care (01) ==
PROVIDERS: Physician Assistant; Emergency Provider Emergency Medicine
DX: U07.1 COVID-19 (principal); F17.210 Nicotine dependence, cigarettes, uncomplicated
CPT/HCPCS: 80053; 87637; 96361; 96365; 99284; Q0047; 81003; 83605; 83735; 85025